=== PATIENT | female | born 1945 | race Caucasian/White ===

== ENCOUNTER → 2022-01-12 10:06 | Outpatient (BNVA) | payer MEDICARE, SELFPAY | PROVIDERS: Visit Provider Family Medicine | DX: R30.0 Dysuria (principal) | CPT/HCPCS: 81000; 87077; 87086; 87184 ==

== ENCOUNTER → 2022-02-09 10:48 | Outpatient (BNVA) | payer MEDICARE, SELFPAY | PROVIDERS: Visit Provider Family Medicine | DX: Z13.6 Encounter for screening for cardiovascular disorders (principal); M19.90 Unspecified osteoarthritis, unspecified site; Z79.899 Other long term (current) drug therapy | CPT/HCPCS: 80053; 80061; 85025 ==

== ENCOUNTER 2022-02-17 08:50 | Outpatient (CLI) | payer MEDICARE, SELFPAY ==
--- NOTE | 2022-02-17 08:57 | MM_ITS ---
WS: [email or web address] SCREENING DIGITAL BREAST TOMOSYNTHESIS MAMMOGRAM WITH CAD HISTORY: screening mammogram COMPARISON: 08/31/2017, 02/25/2016 Bilateral CC and MLO with tomosynthesis and synthetic mammography submitted. Computer aided detection analyzed. Breast composition: The breasts are heterogeneously dense, which may obscure small masses. Spiculated mass of increased density with architectural distortion in the mid RIGHT breast. Mass measures 2.0 x 2.1 cm and is near the 1:00 axis. Mass is just medial to the nipple line and above the nipple line. Otherwise dense fibroglandular tissue and benign calcifications. The visualized lymph nodes are not e nlarged. MM/[place] [id number] IMPRESSION: BI-RADS: 0-Incomplete: Need additional imaging evaluation FOLLOW UP: Need Additional Imaging RIGHT breast ultrasound, limited. Ultrasound directed along the upper outer zack drant of the RIGHT breast at a middle depth. RIGHT axillary ultrasound should also be performed.
== END 2022-02-17 08:51 | disposition home or self-care (01) ==
LOC: RAD 08:50
PROVIDERS: PCP Family Medicine; Visit Provider Family Medicine
DX: Z12.31 Encounter for screening mammogram for malignant neoplasm of breast (principal)
CPT/HCPCS: 77063; 77067

== ENCOUNTER 2022-04-26 15:32 | Outpatient (CLI) | payer MEDICARE, SELFPAY ==
--- NOTE | 2022-04-26 16:25 | XR_ITS ---
WS: [email or web address] XR lumbar spine f/e only [id number] REASON FOR EXAM: VERTEBROGENIC LOW BACK PAIN FINDINGS: Significant compression deformities of L1 and L2 with obliteration of the L1-L2 disc space and extens woody sclerosis and erosion. 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 Severe narrowing of the L2-L3 disc space. Mild narrowing of the L4-L5 and L5-S1 disc space. In the neutral position there is 6 mm of anterolisthesis of L3 in relation to L2. This listhesis redu tejas somewhat with flexion, relatively unchanged with extension. 4 to 5 mm of anterolisthesis of L5 in relation to L4 without significant change on flexion and extens ion. Significant degenerative change in the facet joints L3-S1. Likely the spinal canal from L4 to S1 is n arrowed. XR/XR lumbar spine f/e only [id number] IMPRESSION: Significant changes of degenerative spondylosis in the lumbar spine. Changes at L1-L2 may be subsequent to previous remote trauma.
== END 2022-04-26 15:33 | disposition home or self-care (01) ==
PROVIDERS: PCP Family Medicine; Visit Provider Nurse Practitioner
DX: M54.51 Vertebrogenic low back pain (principal); M47.816 Spondylosis without myelopathy or radiculopathy, lumbar region
CPT/HCPCS: 72120

== ENCOUNTER 2022-08-20 12:37 | Outpatient (CLI) | payer MEDICARE, SELFPAY ==
--- NOTE | 2022-08-20 12:45 | US_ITS ---
WS: [email or web address] RIGHT 3D TOMOSYNTHESIS DIGITAL MAMMOGRAPHY WITH CAD CLINICAL INFORMATION: abnormal US HISTORY: Additional imaging is requested from February 17, 2022 COMPARISON: February 17, 2022 TECHNIQUE: 3 views of the right breast were obtained. FINDINGS: The right breast is composed of heterogeneous fibroglandular density tissue, which can limit the dete ction of small underlying mass lesions. Again seen is the spiculated lesion RIGHT breast similar to t he prior examination February 17, 2022. Today area of spiculation measures approximately 2.8 x 2.5 c m highly suspicious for neoplasm. There is surrounding parenchymal soft tissue suspicious for local e xtension. In addition the palpable marker overlies an additional area of contiguous soft tissue in th e anterior breast. Total area of soft tissue mass suspicious for neoplasm measures approximately 4.9 x 4.1 CM. ULTRASOUND BREAST RIGHT TECHNIQUE: Ultrasound right breast focused area of concern. CLINICAL INFORMATION: abnormal US COMPARISON: None. FINDINGS: Ultrasound RIGHT breast at the 12:00 position 2 cm from the nipple in the area of concern on prior ma mmogram February 17, 2022. There is a solid hypoechoic large mass at the 12:00 position measuring 3. 0 x 1.7 x 3.1 cm most compatible with neoplasm. This demonstrates increased internal vascularity. Amber pected local infiltration. Margins are irregular in appearance. Ultrasound RIGHT axilla demonstrates cortical thickening of the single lymph node which is suspicious . Lymph node measures 1.4 x 0.7 x 1.4 CM. US/US breast RT complete [id number] IMPRESSION: IMPRESSION: BI-RADS: 5-Highly Suggestive of Malignancy FOLLOW UP: US Guided Biopsy Recommended RECOMMEND ULTRASOUND-GUIDED BIOPSY OF THE RIGHT BREAST MASS AND ENLARGED LYMPH NODE. Notified Yifan Fernandez MD at 08/20/2022 1:42 PM.
--- NOTE | 2022-08-20 13:30 | MM_ITS ---
WS: [email or web address] RIGHT 3D TOMOSYNTHESIS DIGITAL MAMMOGRAPHY WITH CAD CLINICAL INFORMATION: abnormal US HISTORY: Additional imaging is requested from February 17, 2022 COMPARISON: February 17, 2022 TECHNIQUE: 3 views of the right breast were obtained. FINDINGS: The right breast is composed of heterogeneous fibroglandular density tissue, which can limit the dete ction of small underlying mass lesions. Again seen is the spiculated lesion RIGHT breast similar to t he prior examination February 17, 2022. Today area of spiculation measures approximately 2.8 x 2.5 c m highly suspicious for neoplasm. There is surrounding parenchymal soft tissue suspicious for local e xtension. In addition the palpable marker overlies an additional area of contiguous soft tissue in th e anterior breast. Total area of soft tissue mass suspicious for neoplasm measures approximately 4.9 x 4.1 CM. ULTRASOUND BREAST RIGHT TECHNIQUE: Ultrasound right breast focused area of concern. CLINICAL INFORMATION: abnormal US COMPARISON: None. FINDINGS: Ultrasound RIGHT breast at the 12:00 position 2 cm from the nipple in the area of concern on prior ma mmogram February 17, 2022. There is a solid hypoechoic large mass at the 12:00 position measuring 3. 0 x 1.7 x 3.1 cm most compatible with neoplasm. This demonstrates increased internal vascularity. Amber pected local infiltration. Margins are irregular in appearance. Ultrasound RIGHT axilla demonstrates cortical thickening of the single lymph node which is suspicious . Lymph node measures 1.4 x 0.7 x 1.4 CM. MM/[place] [id number] IMPRESSION: IMPRESSION: BI-RADS: 5-Highly Suggestive of Malignancy FOLLOW UP: US Guided Biopsy Recommended RECOMMEND ULTRASOUND-GUIDED BIOPSY OF THE RIGHT BREAST MASS AND ENLARGED LYMPH NODE. Notified Yifan Fernandez MD at 08/20/2022 1:42 PM.
== END 2022-08-20 12:38 | disposition home or self-care (01) ==
LOC: RAD 12:37
PROVIDERS: PCP Family Medicine; Visit Provider Family Medicine
DX: R92.8 Other abnormal and inconclusive findings on diagnostic imaging of breast (principal); N63.25 Unspecified lump in the left breast, overlapping quadrants
CPT/HCPCS: 76641; 77061; G0279

== ENCOUNTER 2022-08-27 11:47 | Outpatient (CLI) | payer MEDICARE, MEDICAID, SELFPAY ==
--- NOTE | 2022-08-27 12:32 | US_ITS ---
WS: [email or web address] ULTRASOUND-GUIDED RIGHT BREAST BIOPSY ULTRASOUND-GUIDED RIGHT AXILLARY LYMPH NODE BIOPSY HISTORY: RIGHT breast mass, indeterminate RIGHT axillary lymph node. COMPARISON: Procedure, risks and complications are explained to the patient. Medications are reviewed. Consent is obtained. The mass in the RIGHT breast is localized with ultrasound. Mass localizes to 12:00. Skin is cleansed with ChloraPrep and anesthetized with 1% buffered lidocaine. Small dermatome is made. Under sterile c onditions mass is biopsied with a 14-gauge Achieve needle. Multiple core biopsies are performed. Mate rial placed in formalin and sent to pathology for review. No complications encountered. Breast tissue marker (Bard ultrasound enhanced ribbon): Single. Minimally abnormal RIGHT axillary lymph node is identified. This also will be targeted for biopsy. Th e skin is cleansed with ChloraPrep and anesthetized with lidocaine. Core biopsies are performed with 20-gauge achieve needle. No complications. Specimen placed in formalin as requested. Patient left the radiology suite with no complications. Patient is instructed to return to [facility] or [facility] with any concerns. US/US biopsy lymph node breast/ax IMPRESSION: 1. Uncomplicated core needle biopsy RIGHT breast mass at 12:00. 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 Breast prof ile to be reported separately. RECOMMENDATION: Follow-up with oncology and breast surgeon. 2. RIGHT axillary lymph node biopsy. Pathology: Negative for malignancy.
--- NOTE | 2022-08-27 12:45 | US_ITS ---
WS: [email or web address] ULTRASOUND-GUIDED RIGHT BREAST BIOPSY ULTRASOUND-GUIDED RIGHT AXILLARY LYMPH NODE BIOPSY HISTORY: RIGHT breast mass, indeterminate RIGHT axillary lymph node. COMPARISON: Procedure, risks and complications are explained to the patient. Medications are reviewed. Consent is obtained. The mass in the RIGHT breast is localized with ultrasound. Mass localizes to 12:00. Skin is cleansed with ChloraPrep and anesthetized with 1% buffered lidocaine. Small dermatome is made. Under sterile c onditions mass is biopsied with a 14-gauge Achieve needle. Multiple core biopsies are performed. Mate rial placed in formalin and sent to pathology for review. No complications encountered. Breast tissue marker (Bard ultrasound enhanced ribbon): Single. Minimally abnormal RIGHT axillary lymph node is identified. This also will be targeted for biopsy. Th e skin is cleansed with ChloraPrep and anesthetized with lidocaine. Core biopsies are performed with 20-gauge achieve needle. No complications. Specimen placed in formalin as requested. Patient left the radiology suite with no complications. Patient is instructed to return to [facility] or [facility] with any concerns. US/[place] [id number] IMPRESSION: 1. Uncomplicated core needle biopsy RIGHT breast mass at 12:00. 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 Breast prof ile to be reported separately. RECOMMENDATION: Follow-up with oncology and breast surgeon. 2. RIGHT axillary lymph node biopsy. Pathology: Negative for malignancy.
[2022-08-30 13:31] LABS: Lymphoma Profile (BBPL) See Report
[2022-09-02 12:58] LABS: Breast Profile ER,PR,HER2,Ki-6 See Report
== END 2022-08-27 11:48 | disposition home or self-care (01) ==
PROVIDERS: PCP Family Medicine; Visit Provider Family Medicine
DX: R92.8 Other abnormal and inconclusive findings on diagnostic imaging of breast (principal); C50.811 Malignant neoplasm of overlapping sites of right female breast
CPT/HCPCS: 19083; 38505; 76942; 88184; 88185; 88305; 88361; 88374

== ENCOUNTER 2022-09-06 13:42 | Oncology outpatient (recurring) (ONCR) | payer MEDICARE, MEDICAID, SELFPAY ==
[2022-09-27 21:46] LABS: BRCA 1 & 2 Clinical Interpreta NEGATIVE; BRCA 1&2 Result NEGATIVE
== END 2022-09-26 23:59 | disposition home or self-care (01) ==
PROVIDERS: PCP Family Medicine; Visit Provider Internal Medicine Hematology & Oncology
DX: C50.811 Malignant neoplasm of overlapping sites of right female breast (principal); Z17.0 Estrogen receptor positive status [ER+]; Z80.3 Family history of malignant neoplasm of breast; Z90.710 Acquired absence of both cervix and uterus; Z90.722 Acquired absence of ovaries, bilateral
CPT/HCPCS: 36415; 81162; 99204

== ENCOUNTER 2022-09-21 11:40 | Outpatient (RCR) | payer MEDICARE, MEDICAID, SELFPAY | END 2022-09-26 23:59 | disposition home or self-care (01) | LOC: SPT 11:40 | PROVIDERS: PCP Family Medicine; Visit Provider Family Medicine | DX: M15.9 Polyosteoarthritis, unspecified (principal); M51.36 Other intervertebral disc degeneration, lumbar region | CPT/HCPCS: 97750 ==

== ENCOUNTER → 2022-10-05 11:21 | Outpatient (BNVA) | payer MEDICARE, MEDICAID, SELFPAY | PROVIDERS: PCP Family Medicine; Visit Provider Internal Medicine Hematology & Oncology | DX: C50.911 Malignant neoplasm of unspecified site of right female breast (principal) | CPT/HCPCS: 36415; 80053; 85025; 99214 ==

== ENCOUNTER 2022-10-05 11:26 | Oncology outpatient (recurring) (ONCR) | payer MEDICARE, MEDICAID, SELFPAY | END 2022-10-27 23:59 | disposition home or self-care (01) | PROVIDERS: PCP Family Medicine; Visit Provider Internal Medicine Hematology & Oncology | DX: C50.811 Malignant neoplasm of overlapping sites of right female breast (principal); Z17.0 Estrogen receptor positive status [ER+]; Z79.811 Long term (current) use of aromatase inhibitors; Z79.899 Other long term (current) drug therapy | CPT/HCPCS: 99214 ==

== ENCOUNTER 2022-10-26 11:16 | Outpatient (CLI) | payer MEDICARE, MEDICAID, SELFPAY ==
--- NOTE | 2022-10-26 11:45 | US_ITS ---
WS: [email or web address] ULTRASOUND RIGHT BREAST HISTORY: Follow-up known breast cancer. No treatment for breast cancer at this time. COMPARISON: 08/27/2022, 08/20/2022 TECHNIQUE: 2-D and Doppler. Ultrasound is directed along the 12:00 axis to the mass that is a biopsy-proven neoplasm. Mass is elli ntified with angular margins measuring 2.8 x 1.7 x 3.0 cm at 2 cm from the nipple. Mass has not signi ficantly changed since the prior examination. Biopsy clip is evident within the mass. Again noted is the lymph node which was biopsy negative but still appears slightly abnormal. Displace ment of the central fatty hilum. US/US breast RT limited* [id number] IMPRESSION: BI-RADS: 6-Known Biopsy-Proven Malignancy FOLLOW-UP: See Report 1. Biopsy proven RIGHT breast cancer. Mass has not significantly increased in size since 08/20/2022. 2. No treatment for neoplasm since the prior study. 3. Patient indicates she will not have treatment here and is moving to [facility]. 4. RIGHT axillary lymph nodes were biopsy negative. These lymph nodes although not enlarged appear abnormal due to displacement of the central fatty hilum. T his will need to be reevaluated at time of surgery.
== END 2022-10-26 11:17 | disposition home or self-care (01) ==
LOC: RAD 11:19
PROVIDERS: PCP Family Medicine; Visit Provider Internal Medicine Hematology & Oncology
DX: C50.811 Malignant neoplasm of overlapping sites of right female breast (principal); R93.89 Abnormal findings on diagnostic imaging of other specified body structures
CPT/HCPCS: 36415; 76642; 80053; 85025; 99214

== ENCOUNTER → 2024-07-04 09:30 | Outpatient (BNVA) | payer OTHER, SELFPAY | PROVIDERS: PCP Family Medicine; Referring Provider Family Medicine; Visit Provider Nurse Practitioner Family | DX: M43.16 Spondylolisthesis, lumbar region (principal) | CPT/HCPCS: 72110; 99203 ==

== ENCOUNTER → 2024-08-28 09:01 | Outpatient (BNVA) | payer MEDICAID, SELFPAY | PROVIDERS: PCP Family Medicine; Visit Provider Nurse Practitioner Family | DX: M43.16 Spondylolisthesis, lumbar region (principal); M15.9 Polyosteoarthritis, unspecified | CPT/HCPCS: 99213 ==

== ENCOUNTER → 2024-09-05 09:29 | Outpatient (BNVA) | payer OTHER, MEDICAID, SELFPAY | PROVIDERS: PCP Family Medicine; Visit Provider Anesthesiology Pain Medicine | DX: M54.16 Radiculopathy, lumbar region (principal); M54.9 Dorsalgia, unspecified | CPT/HCPCS: 64483; 64484; J1100; J3490; J9999 ==

== ENCOUNTER 2024-09-06 09:48 | Outpatient (CLI) | payer OTHER, MEDICAID, SELFPAY ==
--- NOTE | 2024-09-06 09:53 | MM_ITS ---
WS: [email or web address] DIAGNOSTIC BILATERAL DIGITAL BREAST TOMOSYNTHESIS MAMMOGRAPHY WITH CAD HISTORY: HX OF BREAST CA COMPARISON: 08/20/2022, 02/17/2022, TECHNIQUE: Bilateral craniocaudad, mediolateral oblique, and mediolateral views are submitted with tomosynthesis and SM. Computer aided detection utilized. Breast composition: The breasts are heterogeneously dense, which may obscure small masses. Status post RIGHT breast lumpectomy. Postsurgical clips are noted 12:00 RIGHT breast. Area of previously described spiculation and soft tissue mass has been surgically removed. Postoperative changes at the surgical site. This is the first mammogram performed after the surgery. The surgical site appears appropriate but close follow-up is recommended. Benign calcifications in each breast. Arterial calcifications. MM/MM diag BI tomosynthesis [id number] IMPRESSION: BI-RADS: 3 - Probably Benign FOLLOW UP: 6 Month Follow-up As this is the initial imaging evaluation since surgery and the most recent exa m of 08/20/2022 recommend 6-month diagnostic RIGHT mammogram follow-up to docume nt continued stability.
== END 2024-09-06 09:49 | disposition home or self-care (01) ==
PROVIDERS: PCP Family Medicine; Visit Provider Family Medicine
DX: Z85.3 Personal history of malignant neoplasm of breast (principal); R92.333 Mammographic heterogeneous density, bilateral breasts; Z98.890 Other specified postprocedural states; R92.1 Mammographic calcification found on diagnostic imaging of breast
CPT/HCPCS: 77062; G0279

== ENCOUNTER → 2024-09-19 08:46 | Outpatient (BNVA) | payer OTHER, MEDICAID, SELFPAY | PROVIDERS: PCP Family Medicine; Visit Provider Nurse Practitioner Family | DX: M43.16 Spondylolisthesis, lumbar region (principal); M15.9 Polyosteoarthritis, unspecified; R10.9 Unspecified abdominal pain | CPT/HCPCS: 99213 ==

== ENCOUNTER 2024-10-04 10:39 | Outpatient (CLI) | payer OTHER, MEDICAID, SELFPAY ==
--- NOTE | 2024-10-04 10:48 | XR_ITS ---
WS: [email or web address] XR shoulder RT min 2V* [id number] REASON FOR EXAM: M25.511 - Pain in right shoulder FINDINGS: No fracture or focal bone lesion. Mild narrowing of the acromioclavicular joint space with moderate marginal osteophytosis. The glenohumeral joint space is not demonstrated due to positioning. There is significant osteophytosis of the humeral head. There is moderate sclerosis and subchondral cystic change in the glenoid. There is moderate sclerosis and cystic change in the greater biceps tuberosity. XR/XR shoulder RT min 2V* [id number] IMPRESSION: Moderate osteoarthritis of the acromioclavicular joint. Osteoarthritis of the glenohumeral joint of unknown severity but at least moder ate and possibly significant. Moderate rotator cuff tendon arthropathy.
== END 2024-10-04 10:40 | disposition home or self-care (01) ==
LOC: RAD 10:42
PROVIDERS: PCP Family Medicine; Visit Provider Nurse Practitioner Family
DX: M19.011 Primary osteoarthritis, right shoulder (principal); M25.711 Osteophyte, right shoulder; R93.7 Abnormal findings on diagnostic imaging of other parts of musculoskeletal system; M85.611 Other cyst of bone, right shoulder; K43.9 Ventral hernia without obstruction or gangrene
CPT/HCPCS: 73030; 99204

== ENCOUNTER → 2024-10-17 13:08 | Outpatient (BNVA) | payer OTHER, MEDICAID, SELFPAY | PROVIDERS: PCP Family Medicine; Visit Provider Anesthesiology Pain Medicine | DX: M54.16 Radiculopathy, lumbar region (principal); M54.9 Dorsalgia, unspecified | CPT/HCPCS: 64483; 64484; J1100; J3490; J9999 ==

== ENCOUNTER 2024-10-19 12:14 | Outpatient (CLI) | payer OTHER, MEDICAID, SELFPAY ==
--- NOTE | 2024-10-19 12:30 | CTR_ITS ---
PROCEDURE INFORMATION: Exam: CT Abdomen And Pelvis With Contrast Exam date and time: 10/19/2024 1:18 PM Age: 79 years old Clinical indication: Condition or disease; Prior surgery; Surgery date: 6+ months; Surgery type: Lower hernia repair, bladder, partial hysterectomy; RT lower hernia complication from prev surg TECHNIQUE: Imaging protocol: Computed tomography of the abdomen and pelvis with contrast. Radiation optimization: All CT scans at this facility use at least one of these dose optimization techniques: automated exposure control; mA and/or kV adjustment per patient size (includes targeted exams where dose is matched to clinical indication); or iterative reconstruction. Contrast material: OMNI 350; Contrast volume: 100 ml; Contrast route: INTRAVENOUS (IV); COMPARISON: CR XR lumbar spine min 4V [id number] 07/04/2024 9:44 AM RADIATION DOSE METRICS: Total DLP (mGy-cm): 483.93 FINDINGS: Tubes, catheters and devices: Right gluteal neurostimulator with a single lead in the right hemipelvis. Lungs: Mild bibasilar atelectasis. Liver: Normal. No mass. Gallbladder and biliary ducts: Cholelithiasis without CT evidence of acute cholecystitis. No biliary ductal dilatation. Pancreas: The pancreas is mildly atrophic. No ductal dilatation. Spleen: Normal. No splenomegaly. Adrenal glands: Normal. No mass. Kidneys and ureters: Normal. No hydronephrosis. Stomach and bowel: Moderate hiatal hernia containing at least half the stomach. Colonic diverticulosis without evidence of acute diverticulitis. No evidence of bowel obstruction. Appendix: No evidence of appendicitis. Intraperitoneal space: Unremarkable. No free air. No significant fluid collection. Vasculature: Mild atherosclerotic aortoiliac calcifications. No abdominal aortic aneurysm. Lymph nodes: Unremarkable. No enlarged lymph nodes. Urinary bladder: Unremarkable as visualized. Reproductive: Status post hysterectomy. No suspicious adnexal mass. Bones/joints: Advanced multilevel lumbar spondylosis. Grade 1 retrolisthesis at L1-L2 and L2-L3 . Lumbar Baastrup disease. Advanced osteoarthritis of the right hip. No acute or aggressive osseous lesion. Soft tissues: Surgical clips along the right pelvic sidewall. Prior right inguinal hernia repair. Surgical clips are seen in the right groin. CT/CT abdomen pelvis w con* [id number] IMPRESSION: 1. No acute findings in the abdomen/pelvis. 2. Moderate hiatal hernia. 3. Cholelithiasis. 4. Colonic diverticulosis without diverticulitis. 5. Advanced osteoarthritis of the right hip.
[2024-10-19 13:11] LABS: Blood Urea Nitrogen 20 mg/dL (8-23)
[2024-10-19] MEDS: iohexol 350 mg/mL 500 mL Btl (per mL) IV (13:18)
== END 2024-10-19 12:15 | disposition home or self-care (01) ==
PROVIDERS: PCP Family Medicine; Visit Provider Student in an Organized Health Care Education/Training Program
DX: K44.9 Diaphragmatic hernia without obstruction or gangrene (principal); K80.20 Calculus of gallbladder without cholecystitis without obstruction; K57.30 Diverticulosis of large intestine without perforation or abscess without bleeding; M16.11 Unilateral primary osteoarthritis, right hip; Z96.89 Presence of other specified functional implants; J98.11 Atelectasis; K86.89 Other specified diseases of pancreas; I70.8 Atherosclerosis of other arteries; Z98.890 Other specified postprocedural states; M47.896 Other spondylosis, lumbar region; M43.16 Spondylolisthesis, lumbar region; M48.26 Kissing spine, lumbar region; M79.89 Other specified soft tissue disorders
CPT/HCPCS: 74177; 82565; 84520

== ENCOUNTER → 2024-10-29 10:15 | Outpatient (BNVA) | payer OTHER, MEDICAID, SELFPAY | PROVIDERS: PCP Family Medicine; Visit Provider Nurse Practitioner Family | DX: M25.551 Pain in right hip (principal); M43.16 Spondylolisthesis, lumbar region; M15.9 Polyosteoarthritis, unspecified | CPT/HCPCS: 99214 ==

== ENCOUNTER 2024-11-02 11:10 | Outpatient (CLI) | payer OTHER, MEDICAID, SELFPAY ==
--- NOTE | 2024-11-02 11:18 | XR_ITS ---
WS: [email or web address] XR hip RT 2-3V wo/w pel* [id number] REASON FOR EXAM: M25.551 - Pain in right hip FINDINGS: No fracture or focal bone lesion. Severe narrowing of the entire joint space with [id number] articulation in the superior anterior joint space. Significant subchondral sclerosis and cystic change with osteophytosis in the acetabulum. Significant subchondral sclerosis and cystic change with moderate osteophytosis of the femoral head. There is a large geode in the subcu chondral femoral head underlying the [id number] articulation. XR/XR hip RT 2-3V wo/w pel* [id number] IMPRESSION: Severe osteoarthritis of the right hip as above.
== END 2024-11-02 11:11 | disposition home or self-care (01) ==
LOC: RAD 11:13
PROVIDERS: PCP Family Medicine; Visit Provider Nurse Practitioner Family
DX: M25.551 Pain in right hip (principal)
CPT/HCPCS: 73502; 80053; 80061; 84439; 84443; 85025

== ENCOUNTER → 2024-11-08 13:01 | Outpatient (BNVA) | payer OTHER, MEDICAID, SELFPAY | PROVIDERS: PCP Family Medicine; Visit Provider Nurse Practitioner Family | DX: M70.61 Trochanteric bursitis, right hip (principal); M43.16 Spondylolisthesis, lumbar region; M15.9 Polyosteoarthritis, unspecified | CPT/HCPCS: 20610; 99214; J1010; J3490 ==

== ENCOUNTER → 2024-11-27 10:45 | Outpatient (BNVA) | payer OTHER, MEDICAID, SELFPAY | PROVIDERS: PCP Family Medicine; Visit Provider Nurse Practitioner Family | DX: M25.551 Pain in right hip (principal); M43.16 Spondylolisthesis, lumbar region; M15.9 Polyosteoarthritis, unspecified | CPT/HCPCS: 99214 ==

== ENCOUNTER → 2024-12-20 09:01 | Outpatient (BNVA) | payer OTHER, MEDICAID, SELFPAY | PROVIDERS: PCP Family Medicine; Visit Provider Nurse Practitioner Family | DX: M54.9 Dorsalgia, unspecified (principal); M25.551 Pain in right hip; M43.16 Spondylolisthesis, lumbar region; M15.9 Polyosteoarthritis, unspecified | CPT/HCPCS: 99214 ==

== ENCOUNTER → 2025-01-15 14:16 | Outpatient (BNVA) | payer OTHER, MEDICAID, SELFPAY | PROVIDERS: PCP Family Medicine; Visit Provider Physician Assistant | DX: M16.11 Unilateral primary osteoarthritis, right hip (principal) | CPT/HCPCS: 73502; 99203 ==

== ENCOUNTER → 2025-02-15 09:18 | Outpatient (BNVA) | payer OTHER, MEDICAID, SELFPAY | PROVIDERS: PCP Family Medicine; Visit Provider Student in an Organized Health Care Education/Training Program | DX: M16.11 Unilateral primary osteoarthritis, right hip (principal); Z71.89 Other specified counseling | CPT/HCPCS: 20610; 77002; J3301; J9999 ==

== ENCOUNTER 2025-03-05 09:05 | Outpatient (CLI) | payer OTHER, MEDICAID, SELFPAY ==
--- NOTE | 2025-03-05 09:45 | MM_ITS ---
WS: [email or web address] DIAGNOSTIC RIGHT DIGITAL BREAST TOMOSYNTHESIS MAMMOGRAPHY WITH CAD HISTORY: hx of breast cancer COMPARISON: 09/06/2024, 08/20/2022, 02/17/2022 Breast composition: The breasts are heterogeneously dense, which may obscure small masses. Lumpectomy site remain stable. Heterogeneous soft tissue with areas of distortion are stable. There are surgical clips and benign calcifications which are stable. No recurrent mass identified or distortion. No skin thickening or change in trabecular pattern. MM/MM diag RT tomosynthesis [id number] IMPRESSION: BI-RADS: 3 - Probably Benign FOLLOW UP: 6 Month Follow-up Patient to return for bilateral annual mammogram in August 2025.
== END 2025-03-05 09:06 | disposition home or self-care (01) ==
LOC: RAD 09:07
PROVIDERS: PCP Family Medicine; Visit Provider Family Medicine
DX: Z85.3 Personal history of malignant neoplasm of breast (principal); R92.323 Mammographic fibroglandular density, bilateral breasts; R92.1 Mammographic calcification found on diagnostic imaging of breast
CPT/HCPCS: 77061; G0279

== ENCOUNTER → 2025-05-17 08:44 | Outpatient (BNVA) | payer MEDICARE, MEDICAID, SELFPAY | PROVIDERS: PCP Family Medicine; Visit Provider Physician Assistant | DX: M16.11 Unilateral primary osteoarthritis, right hip (principal) | CPT/HCPCS: 99214 ==